=== PATIENT | male | born 1955 | race Caucasian/White ===

== ENCOUNTER 2019-04-03 13:05 | Outpatient (CLI) | payer OTHER ==
--- NOTE | 2019-04-04 14:00 | XRAY Report ---
Reason: INLEFT SIDE SCIATICA Procedure Date: 04/03/2019 Accession Number: [id number] / [id number] Procedure: XR - Lumbar Spine 2 View CPT Code: FULL RESULT: EXAM: LUMBOSACRAL SPINE RADIOGRAPHY EXAM DATE: 04/03/2019 01:25 PM. CLINICAL HISTORY: INLEFT SIDE SCIATICA. COMPARISONS: None. TECHNIQUE: 3 views. FINDINGS: Alignment: Dextroscoliosis. Grade 1 anterolisthesis L4 on L5. Bones: Five [id number] lumbar vertebral bodies are present. Partially sacralized L5 Mild compression of L1. There may be some central compression of L2. Disks: Osteophyte at every level. Disk space narrowing at L3-L4, L4-L5 and L5-S1. Facets: L4-L5, L5-S1 facet arthropathy. Sacroiliac Joints: Unremarkable. Soft Tissues: Vascular calcifications. The visualized bowel gas pattern is normal. IMPRESSION: Moderate DJD RADIA
== END 2019-04-03 13:06 | disposition home or self-care (01) ==
LOC: DI 13:05
PROVIDERS: ATTEND Physician Assistant
DX: M47.26 Other spondylosis with radiculopathy, lumbar region (principal); M54.32 Sciatica, left side
CPT/HCPCS: 72100

== ENCOUNTER 2024-04-02 15:28 | Emergency (ER) | payer MEDICARE, BC ==
[2024-04-02 15:51] VITALS: BP 145/76; O2SAT 98
--- NOTE | 2024-04-02 18:51 | ED Physician Documentation ---
PD HPI SKIN - Stated complaint Stated Complaint: RT LEG LAC - Chief complaint Chief Complaint: Laceration - Additional information Additional information: 69 yo male with chronic meniscus issues of right knee and chronic swelling of right knee, was pruning a plant today and accidentally cut top of leg with trolley collector today. Unsure if he is up to date with tetanus. bleeding controlled, not on blood thinners. Injury happened today at 1500. PD PAST MEDICAL HISTORY - Past Medical History Past Medical History: No Cardiovascular: Hypertension Respiratory: None Neuro: None Endocrine/Autoimmune: None GI: None : None HEENT: None Psych: None Musculoskeletal: None Derm: None - Past Surgical History Past Surgical History: No - Present Medications Home Medications: Ambulatory Orders Medication Instructions Recorded Confirmed Lisinopril/Hydrochlorothiazide 10 mg PO DAILY 04/02/24 [Zestoretic 10-12.5 mg Tablet] - Allergies Allergies/Adverse Reactions: Allergies Allergy/AdvReac Type Severity Reaction Status Date / Time No Known Drug Allergies Allergy Verified 04/02/24 15:46 - Social History Does the pt smoke?: No Smoking Status: Never smoker Does the pt drink ETOH?: Yes Does the pt have substance abuse?: No - Immunizations Immunizations are current?: No - POLST Patient has POLST: No PD ED PE NORMAL - Vitals Vital signs reviewed: Yes - Derm Derm: Other (right superior knee laceration 4 cm. ) - Extremities Extremities: No deformity, No tenderness to palpate, No calf tenderness / cord, Other (left knee swelling, full ROM) Results - Vitals Vitals: Oxygen O2 Source Room air Procedures - Laceration (location) right knee laceration Length in cm: 4 Wound type: Curved, Flap, Into subcut fat, Clean Neurovascular status: Sensory intact, Motor intact, Vascular intact Anesthesia: Lidocaine 2% Wound preparation: Irrigated copiously NS, Wound explored, To the base Skin layer closure: Nylon, Interrupted, Size #-0 - enter number (3), Sutures - enter # (4-0) Other: Patient tolerated well, No complications, Neurovascular intact, Dressing applied, Tetanus booster given PD Medical Decision Making - ED course ED course: Wound inspected under direct bright light with good visualization. Area with linear laceration across soft tissue through adipose without exposure of muscle belly or tendon_. No overt foreign body. Area hemostatic. Neurovascular exam congruent with above. Area extensively irrigated with sterile normal saline under pressure. Laceration repaired in simple fashion (please see procedure note for further details). Patient tolerated procedure well. Cautious return precautions discussed w/ full understanding. Wound care discussed. Prompt follow up with primary care physician discussed and return for suture removal in 12 days. Departure - Departure Disposition: 01 Home, Self Care Clinical Impression: Leg laceration Instructions: ED Laceration All Comments: Come back for any signs of infection which would include: Redness, swelling, drainage, increased pain, or fevers. You can wash it soap and water. Keep it covered and moist with bacitracin ointment which is available over the counter; avoid neosporin. Follow-up with your physician in 12 days for suture removal. Forms: PCP List Discharge Date/Time: 04/02/24 19:35
[2024-04-02] MEDS: LIDOCAINE-MPF 2% 5 ML VIAL SUBQ ONE (18:56)
== END 2024-04-02 19:35 | disposition home or self-care (01) ==
LOC: ED 15:28
DX: S81.811A Laceration without foreign body, right lower leg, initial encounter (principal); W45.8XXA Other foreign body or object entering through skin, initial encounter; Y93.H2 Activity, gardening and landscaping; I10 Essential (primary) hypertension; Z79.899 Other long term (current) drug therapy
CPT/HCPCS: 12002; 99283